=== PATIENT | female | born 1945 | race Caucasian/White ===

== ENCOUNTER 2021-06-17 05:45 | Day surgery (SDC) | payer MEDICARE, OTHER ==
[2021-06-10 11:33] LABS: BASOPHILS # (AUTO) 0.1 X10'3 (0-0.2); BASOPHILS % (AUTO) 1.3 % (0-1); EOSINOPHILS # (AUTO) 0.2 X10'3 (0-0.9); EOSINOPHILS % (AUTO) 2.4 % (0-6); LYMPHOCYTES # (AUTO) 2.3 X10'3 (1.1-4.8); LYMPHOCYTES % (AUTO) 29.4 % (21-51); MEAN CORPUSCULAR HEMOGLOBIN 19.9 PG (27.0-31.0); MEAN CORPUSCULAR HGB CONC 31.3 g/dL (33.0-36.5); MEAN CORPUSCULAR VOLUME 63.6 FL (78-98); MEAN PLATELET VOLUME 8.6 FL (7.4-10.4); MONOCYTES # (AUTO) 0.5 X10'3 (0-0.9); MONOCYTES % (AUTO) 6.3 % (2-12); NEUTROPHILS # (AUTO) 4.7 X10'3 (1.8-7.7); NEUTROPHILS % (AUTO) 60.6 % (42-75); PRE OP HEMATOCRIT 36.5 % (35.0-45.0); PRE OP HEMOGLOBIN 11.4 g/dL (12.0-16.0); PRE OP PLATELET COUNT 386 X10'3 (140-440); RED BLOOD COUNT 5.73 X10'6 (4.20-5.60)
[2021-06-10 11:59] LABS: CLARITY,URINE SLIGHTLY CLOUDY (Clear); COLOR,URINE DARK YELLOW (Yellow); GLUCOSE, URINE NEGATIVE (Neg); KETONES,URINE NEGATIVE (Neg); LEUKOCYTE ESTERASE ,URINE NEGATIVE (Neg); NITRITES, URINE NEGATIVE (Neg); OCCULT BLOOD,URINE NEGATIVE (Neg); PROTEIN,URINE NEGATIVE (Neg); UA COLLECTION TYPE CLN CATCH MIDSTREAM; UROBILINOGEN,URINE 0.2 E.U/dL (0.2-1.0)
[2021-06-10 12:00] LABS: AMORPHOUS URATES 1+; BACTERIA,URINE FEW /HPF (Neg); MUCUS STRANDS MODERATE /LPF (Neg); RBC,URINE NONE SEEN /HPF (0-2); SQUAMOUS EPITHELIAL CELL,UR FEW /LPF (FEW); WBC,URINE 0-4 /HPF (0-4)
[2021-06-10 12:17] LABS: ALBUMIN 3.9 G/DL (3.4-5.0); ALBUMIN/GLOBULIN RATIO 1.1 (1.1-1.5); ALKALINE PHOSPHATASE 113 IU/L (46-116); BLOOD UREA NITROGEN 28 MG/DL (7-18); BUN/CREATININE RATIO 28.9 (6.6-38.0); CALCIUM 9.5 MG/DL (8.5-10.1); CHLORIDE 105 MMOL/L (99-107); CREATININE 0.97 MG/DL (0.40-0.90); PRE OP ALT 19 U/L (30-65); PRE OP ANION GAP 7 (8-16); PRE OP AST 19 U/L (10-37); PRE OP BILIRUB, TOTAL 0.3 MG/DL (0.0-1.0); PRE OP GLUCOSE 103 MG/DL (70-104); PRE OP POTASSIUM 4.1 MMOL/L (3.4-5.1); PRE OP SODIUM 136 MMOL/L (135-145); TOTAL PROTEIN 7.6 G/DL (6.4-8.2); eGFR 56 ML/MIN
[2021-06-10 12:29] LABS: MICROCYTOSIS 1+; PLATELET ESTIMATE NORMAL; TOTAL CELLS COUNTED 100
[2021-06-10 12:30] LABS: ANISOCYTOSIS 1+
[~2021-06-17] VITALS: Ht 154.9 cm; Wt 57.0 kg
[~2021-06-17 05:45] MED LIST: LOSA50TA3 PO; SIMV20TA PO; ceFAZolin 2gm in dextrose, iso 50 ML IV ONE; famotidine 20mg tablet PO ONE; ringers solution, lacted 1,000 ML IV SCH
[2021-06-17 06:33] VITALS: BP 138/75
[2021-06-17] MEDS ORDERED: meperidine/PF 25mg/ml syringe IV PRN ×3 (07:30)
[2021-06-17] MEDS ORDERED: proCHLORperazine 10 MG/2 ml inj IV PRN (07:30)
[2021-06-17] MEDS ORDERED: morphine 4 MG/ML inj SYRINge IV PRN (07:30)
[2021-06-17] MEDS ORDERED: ringers solution, lacted 1,000 ML IV SCH (07:30)
[2021-06-17] MEDS ORDERED: hydrALAZINE 20mg/ml inj. IV PRN (07:30)
[2021-06-17] MEDS ORDERED: ondansetron/PF 4mg/2ml inj IV PRN (07:30)
[2021-06-17] MEDS ORDERED: morphine 2 MG/ML inj. syringe IV PRN (07:30)
[2021-06-17] MEDS ORDERED: labetalol 20mg/4ml (5mg/ml) syringe IV PRN (07:30)
[2021-06-17] MEDS ORDERED: acetaminophen 1,000mg/100ml IV 100 ML IV PRN (07:30)
[2021-06-17] MEDS ORDERED: fentaNYL/PF 50MCG/1 ML 2ML syringe ONE (08:33)
[2021-06-17] MEDS ORDERED: BUPIVAcaine/PF 2.5 mg/ml (0.25%) 30ml vial ONE (08:47)
[2021-06-17] MEDS ORDERED: bacitracin 15gm ointment TP ONE (08:47)
[2021-06-17] MEDS ORDERED: ondansetron/PF 4mg/2ml inj ONE (08:49)
[2021-06-17] MEDS ORDERED: dexamethasone sod phosphate 4mg/ml inj. ONE (08:49)
[2021-06-17] MEDS ORDERED: propofol inj 20 ML IV ONE ×2 (08:49→08:52)
[2021-06-17] MEDS ORDERED: midazolam 1 mg/ML 2ml injection ONE (08:49)
[2021-06-17] MEDS ORDERED: LIDOcaine 2% (20mg/ml) 5ml vial ONE (08:49)
[2021-06-17] MEDS ORDERED: morphine 10mg/ml inj. ONE (09:36)
[2021-06-17 09:37] VITALS: BP 166/89
--- NOTE | 2021-06-17 09:37 | NUR ---
ASSUME CARE PT AWAKE DENIES PAIN VSS, IV TO LUE 20G INTACT WITH IVF INFUSING WITHOUT DIFF, SETH WRAP CDI WITH +CMS TO THE RIGHT FOOT AND TOES, WITH BRACE TO THE RIGHT LEG INTACT. CONT TO MONITOR. Addendum: 06/17/21 at 0999 by Sobeida Peres RN Amended: Links added.
[2021-06-17 09:50] VITALS: BP 128/80
[2021-06-17 10:00] VITALS: BP 145/80
--- NOTE | 2021-06-17 10:08 | NUR ---
PT MORE AWAKE ALERT VSS NO DISTRESS SITTING UP IN BED DENIES PAIN TO SURG SITE, +CMS TO THE RIGHT FOOT AND TOES, TAINA PO'S MEETS CRITERIA TO DC HOME, DC INSTR GIVEN NO ?'S OR CONCERNS. Addendum: 06/17/21 at 1009 by Sobeida Peres RN Amended: Links added.
[2021-06-17 10:10] VITALS: BP 125/88
== END 2021-06-17 10:27 | disposition home or self-care (01) ==
LOC: PAS 05:45
PROVIDERS: ATTEND Podiatrist Foot & Ankle Surgery
DX: M20.21 Hallux rigidus, right foot (principal); M19.071 Primary osteoarthritis, right ankle and foot; M18.0 Bilateral primary osteoarthritis of first carpometacarpal joints; I10 Essential (primary) hypertension; M19.042 Primary osteoarthritis, left hand; Z88.2 Allergy status to sulfonamides; Z98.890 Other specified postprocedural states; Z79.899 Other long term (current) drug therapy; Z20.822 Contact with and (suspected) exposure to COVID-19; Z87.891 Personal history of nicotine dependence
CPT/HCPCS: 28750; 36415; 73620; 76000; 80053; 81001; 82948; 85025; 93005; A6223; C1713; J1100; J2001; J2250; J2270; J2405; J2704; J3010; J3490; U0003; U0005; Z7506; Z7508; Z7512; 85007; A4215; A4618; A6449; A7000; J7120